=== PATIENT | female | born 1995 | race Caucasian/White ===

== ENCOUNTER 2018-02-26 22:07 | Emergency (ER) | payer BC, OTHER ==
[2018-02-26 22:20] VITALS: BP 123/74; PULSE 103; TEMP 97.9; BMI 36.9
[2018-02-26] MEDS ORDERED: GABAPENTIN 300 MG CAPSULE (FP) PO ONE (23:14)
[2018-02-26] MEDS ORDERED: IBUPROFEN 600 MG TABLET (FP) PO ONE ×2 (23:16→23:49)
--- NOTE | 2018-02-26 23:18 | PDOC ---
History of Present Illness - General Chief Complaint: Toothache Stated Complaint: TOOTH ACHE Time Seen by Provider: 02/26/18 22:49 History Source: Patient Exam Limitations: No Limitations - History of Present Illness Initial Comments: 23 yo F w a pmh of diabetes and an abscess who presents with 4 days of R sided stabbing facial pain. She denies any inciting factors and states this has never happened in the past. She reports that the pain comes and goes but when it comes on it typically lasts for around 3 to 4 hours. She states it is not random lightening bolt episodes for 15-20 seconds. She has been taking 600 mg of motrin and flexiril for pain control but it has not helped. She denies any recent fevers, chills, or infections. Denies trouble swallowing. Denies neck pain. Denies lip or tongue swelling. PCP: Dr. Mar Hernández Allergies: NKA, NKDA Social Hx: Denies smoking, drinking, or illicit drug usage. Past History - Past Medical History Allergies/Adverse Reactions: Allergies Allergy/AdvReac Type Severity Reaction Status Date / Time No Known Allergies Allergy Verified 02/26/18 22:19 Home Medications: Ambulatory Orders Penicillin V Potassium [Pen Vee K -] 250 mg PO QID #28 tablet 02/27/18 COPD: No Diabetes: Yes (IDDM) Psychiatric Problems: Yes (depression) - Suicide/Smoking/Psychosocial Hx Smoking History: Never smoked Hx Alcohol Use: No Drug/Substance Use Hx: No Review of Systems - Review of Systems Able to Perform ROS?: Yes Comments:: CONSTITUTIONAL: Absent: fever, no chills, no fatigue EYES: Absent: visual changes ENT: Absent: ear pain, no sore throat CARDIOVASCULAR: Absent: chest pain, no palpitations RESPIRATORY: Absent: cough, no SOB GI: Absent: abdominal pain, no nausea, no vomiting, no constipation, no diarrhea GENITOURINARY: Absent: dysuria, no frequency, no hematuria MUSKULOSKELETAL: Absent: back pain, no arthralgia, no myalgia SKIN: Absent: rash NEURO: Absent: headache *Physical Exam - Vital Signs Last Vital Signs Temp Pulse Resp BP Pulse Ox 97.9 F 103 H 20 123/74 100 02/26/18 22:14 02/26/18 22:14 02/26/18 22:14 02/26/18 22:14 02/26/18 22:14 - Physical Exam Comments: GENERAL: Well-appearing, well-nourished. No apparent distress. HEENT: There is pain in the mandibular branch distribution to touch. Patient has a broken and infected looking inferior molar on the right. Normocephalic, atraumatic. PERRL, EOM intact. No peritonsilar abscess. CARDIOVASCULAR: Normal S1, S2. Tachycardic rate and regular rhythm. PULMONARY: Clear to auscultation bilaterally. ABDOMEN: Soft, non-distended, non-tender. EXTREMITIES: Normal ROM in all four extremities. No gross deformities. SKIN: Warm, dry. No rash NEUROLOGICAL: No focal neurological deficits. Moderate Sedation - Procedure Monitoring Vital Signs: Procedure Monitoring Vital Signs Temperature 97.9 F 02/26/18 22:14 Pulse Rate 103 H 02/26/18 22:14 Respiratory Rate 20 02/26/18 22:14 Blood Pressure 123/74 02/26/18 22:14 O2 Sat by Pulse Oximetry (%) 100 02/26/18 22:14 Medical Decision Making - Medical Decision Making 23 yo F w a pmh of diabetes and an abscess who presents with 4 days of R sided stabbing facial pain. DDx IBNLT: trigeminal neuralgia, lesion compressing nerve, tooth abscess, sinusitis, pinched nerve. Plan: gabapentin, motrin, re-assess. Patient has a broken inferior right molar tooth which is infected. Will DC with Abx. *DC/Admit/Observation/Transfer Diagnosis at time of Disposition: Facial pain, Broken tooth, Infected tooth - Discharge Dispostion Disposition: HOME Condition at time of disposition: Stable Decision to Admit order: No - Prescriptions Prescriptions: Penicillin V Potassium [Pen Vee K -] 250 mg PO QID #28 tablet - Referrals Referrals: Flako Hernández MD [Primary Care Provider] - - Patient Instructions Printed Discharge Instructions: DI for Trigeminal Neuralgia, Neuropathic Pain Additional Instructions: You came into the ER with Right sided facial pain. We believe this pain is from a broken tooth. We are sending a medication to your pharmacy to help with the pain. Please make sure to go and pick it up. Come back to the ER if your pain worsens, you have difficulty swallowing, get a high fever, or have any other new or worsening concerns. Thank you for coming to the [place]. We hope you feel better soon! Print Language: SERBIAN - Post Discharge Activity
[2018-02-26] MEDS ORDERED: GABAPENTIN 100 MG CAPSULE (FP) ONE (23:48)
[2018-02-27] MEDS ORDERED: PENICILLIN V POTASSIUM 500 MG TABLET PO ONE (00:25)
--- NOTE | 2018-02-27 00:33 | PDOC ---
Attending Attestation - Resident Resident Name: Victorino Douglas - ED Attending Attestation I have performed the following: I have examined & evaluated the patient, The case was reviewed & discussed with the resident, I agree w/resident's findings & plan - HPI HPI: 02/27/18 00:28 Pt comes with right mandibular pain. She has pain with opening her mouth, and acknowledges that she has a broken tooth, and that she never went to dentist for this. She has had pain x 4 days. She took motrin with some relief. - Physicial Exam PE: 02/27/18 00:33 Agree with resident exam 02/27/18 00:34 Pt has broken tooth at the right mandible. No swelling of the gingiva; no redness and no pus. No swelling of the buccal muscosa. Pt is afebrile. Pt has no rigoberto's angina. Pharynx is normal. Voice is unchanged. - Medical Decision Making 02/27/18 00:34 Home with pen V K and motrin for pain.
== END 2018-02-27 00:48 | disposition home or self-care (01) ==
LOC: JERFT 22:07 → JER 22:07
DX: K08.9 Disorder of teeth and supporting structures, unspecified (principal); G50.1 Atypical facial pain; E11.9 Type 2 diabetes mellitus without complications; F32.9 Major depressive disorder, single episode, unspecified
CPT/HCPCS: 99282-25

== ENCOUNTER 2019-11-08 18:44 | Emergency (ER) | payer OTHER ==
[2019-11-08 18:50] VITALS: BMI 38.7
--- NOTE | 2019-11-08 18:50 | PDOC ---
Rapid Medical Evaluation Time Seen by Provider: 11/08/19 18:47 Medical Evaluation: Allergies Allergy/AdvReac Type Severity Reaction Status Date / Time No Known Allergies Allergy Verified 11/08/19 18:47 11/08/19 18:48 HPI: 24 year old female pmhx DM I complaining of [place] since Thursday, with associated N/V x 2 NBNB PE: RRR CTA Neuro grossly intact A/P: [facility] NS Imaging differed to provider Pt to precede to ED for further evaluation and treatment.
[2019-11-08] MEDS ORDERED: SODIUM CHLORIDE 0.9% 500 ML INFUS.BAG IV ONE (18:51)
[2019-11-08] MEDS ORDERED: ONDANSETRON 4 MG/2 ML VIAL IVPUSH ONE (19:55)
--- NOTE | 2019-11-08 19:58 | PDOC ---
*Physical Exam - Vital Signs Last Vital Signs Temp Pulse Resp BP Pulse Ox 98.0 F 111 H 20 125/80 100 11/08/19 18:48 11/08/19 18:48 11/08/19 18:48 11/08/19 18:48 11/08/19 18:48 ED Treatment Course - LABORATORY CBC & Chemistry Diagram: 11/08/19 20:40 11/08/19 20:40 Medical Decision Making - Medical Decision Making 11/08/19 19:58 Patient seen by the advanced practice provider under my supervision. Ancillary testing reviewed as necessary. I agree with plan as outlined by the advanced practice provider. Discharge - Discharge Information Problems reviewed: Yes Clinical Impression/Diagnosis: Insulin dependent diabetes mellitus, Hyperglycemia, Cystitis Nausea & vomiting Qualifiers: Vomiting type: unspecified Vomiting Intractability: unspecified Qualified Code(s): R11.2 - Nausea with vomiting, unspecified Disposition: HOME - Additional Discharge Information Prescriptions: Cephalexin Monohydrate [Keflex -] 500 mg PO BID #14 capsule - Follow up/Referral - Patient Discharge Instructions Patient Printed Discharge Instructions: DI for Hyperglycemia -- Adult Additional Instructions: Drink plenty of fluids. Follow-up with your doctor. Take cephalexin as prescribed. Return to the emergency room for any worsening symptoms - Post Discharge Activity
--- NOTE | 2019-11-08 20:56 | PDOC ---
History of Present Illness - General Chief Complaint: Headache Stated Complaint: HEADACHE Time Seen by Provider: 11/08/19 18:47 History Source: Patient - History of Present Illness Initial Comments: 11/08/19 21:12 24-year-old female complaining of nausea vomiting generalized abdominal discomfort and headache for the last 2 days. Patient is a insulin-dependent diabetic, took her insulin today. Denies diarrhea, weakness, URI symptoms, urinary symptoms Past History - Medical History Allergies/Adverse Reactions: Allergies Allergy/AdvReac Type Severity Reaction Status Date / Time No Known Allergies Allergy Verified 11/08/19 18:47 Home Medications: Ambulatory Orders Penicillin V Potassium [Pen Vee K -] 250 mg PO QID #28 tablet 02/27/18 Cephalexin Monohydrate [Keflex -] 500 mg PO BID #14 capsule 11/09/19 COPD: No Diabetes: Yes (IDDM) Psychiatric Problems: Yes (depression, BIPOLAR) - Reproductive History Is Patient Now?: No - Immunization History Immunization Up to Date: Yes - Psycho-Social/Smoking History Smoking History: Never smoked - Substance Abuse Hx (Audit-C & DAST Scrn) How often the patient has a drink containing alcohol: Never Score: In Men: 4 or > Positive; In Women: 3 or > Positive: 0 Screen Result (Pos requires Nsg. Audit-10AR): Negative In the last yr the pt used illegal drug/Rx for NonMed reason: No Score: Yes response is considered Positive: 0 Screen Result (Positive result requires Nsg. DAST-10): Negative Review of Systems - Review of Systems Able to Perform ROS?: Yes Is the patient limited Vietnamese proficient: No ABD/GI: Yes: Nausea, Vomiting, Abdominal cramping. No: Symptoms Reported, See HPI, Abdominal Distended, Abd. Pain w/ defecation, Blood Streaked Bowels, Constipated, Diarrhea, Difficulty Swallowing, Poor Appetite, Poor Fluid Intake, Rectal Bleeding, Indigestion, Tarry Stools, Other : No: Symptoms Reported, See HPI, Burning, Dysuria, Discharge, Frequency, Flank Pain, Hematuria, Incontinence, Pain, Urgency, Testicular Mass, Testicular Swelling, Lesions, Testicular Pain, Other Neurological: Yes: Headache. No: Symptoms reported, See HPI, Numbness, Paresthesia, Pre-Existing Deficit, Seizure, Tingling, Tremors, Weakness, Unsteady Gait, Ataxia, Dizziness, Other *Physical Exam - Vital Signs Last Vital Signs Temp Pulse Resp BP Pulse Ox 98.0 F 111 H 20 125/80 100 11/08/19 18:48 11/08/19 18:48 11/08/19 18:48 11/08/19 18:48 11/08/19 18:48 - Physical Exam General Appearance: Yes: Appropriately Dressed HEENT: positive: Normal ENT Inspection Neck: positive: Supple. negative: Rigidity Respiratory/Chest: positive: Lungs Clear Cardiovascular: positive: Regular Rhythm, Regular Rate Gastrointestinal/Abdominal: positive: Normal Bowel Sounds, Soft. negative: Tender Extremity: positive: Normal Capillary Refill, Normal Inspection, Normal Range of Motion Integumentary: positive: Normal Color, Dry, Warm Neurologic: positive: Fully Oriented, Alert, Normal Mood/Affect ED Treatment Course - LABORATORY CBC & Chemistry Diagram: 11/08/19 20:40 11/08/19 20:40 - ADDITIONAL ORDERS Additional order review: Laboratory Results 11/08/19 20:42 POC Glucometer 355 11/08/19 20:42 POC Glucometer 355 - Medications Given in the ED: ED Medications Discontinued Medications Generic Name Dose Route Start Last Admin Trade Name Freq PRN Reason Stop Dose Admin Ondansetron HCl 4 mg 11/08/19 19:55 11/08/19 20:54 Zofran Injection IVPUSH 11/08/19 19:56 4 mg ONCE ONE Administration Sodium Chloride 1,000 ml 11/08/19 18:51 11/08/19 20:54 Normal Saline - IV 11/08/19 18:52 1,000 ml ONCE ONE Administration Medical Decision Making - Medical Decision Making 11/08/19 23:21 A: hyperglycemia Nausea and vomiting P: labs beta hydroxy Ua IVF antiemetics tylenol 11/09/19 00:26 patient reports feel better currently PO challenging Discharge - Discharge Information Problems reviewed: Yes Clinical Impression/Diagnosis: Insulin dependent diabetes mellitus, Hyperglycemia, Cystitis Nausea & vomiting Qualifiers: Vomiting type: unspecified Vomiting Intractability: unspecified Qualified Code(s): R11.2 - Nausea with vomiting, unspecified Disposition: HOME - Additional Discharge Information Prescriptions: Cephalexin Monohydrate [Keflex -] 500 mg PO BID #14 capsule - Follow up/Referral - Patient Discharge Instructions Patient Printed Discharge Instructions: DI for Hyperglycemia -- Adult Additional Instructions: Drink plenty of fluids. Follow-up with your doctor. Take cephalexin as prescribed. Return to the emergency room for any worsening symptoms - Post Discharge Activity
[2019-11-08 21:01] LABS: BASO % 0.7 % (0-2.0); HEMATOCRIT 37.4 % (32.4-45.2); HEMOGLOBIN 12.3 GM/dL (10.7-15.3); LYMPH % 41.5 % (8-40); MCH 29.2 pg (25.7-33.7); MCHC 32.9 g/dl (32.0-36.0); MEAN CELL VOLUME 88.8 fl (80-96); MEAN PLT VOLUME 8.8 fl (7.5-11.1); MONO % 7.4 % (3.8-10.2); NEUT % 48.4 % (42.8-82.8); PLATELET COUNT 413 K/MM3 (134-434); RBC 4.21 M/mm3 (3.60-5.2); RDW 13.7 % (11.6-15.6); WHITE BLOOD COUNT 11.9 K/mm3 (4.0-10.0)
[2019-11-08 21:02] LABS: VENOUS BASE EXCESS -1.3 mmol/L (-2-2); VENOUS O2 SATURATION 93.3 % (70-80); VENOUS PCO2 38.4 mmHg (38-52); VENOUS PH 7.4 (7.310-7.410)
[2019-11-08 21:07] LABS: EPI CELLS >36 /uL (0-25.1); HYALINE CASTS 1 /uL (0-3.1); PH,URINE 5.5 (5.0-8.0); URINE APPEARANCE CLEAR; URINE BACTERIA 961 /uL (0-1359); URINE BILIRUBIN NEGATIVE (NEGATIVE); URINE COLOR YELLOW; URINE GLUCOSE (UA) 3+ (NEGATIVE); URINE KETONE NEGATIVE (NEGATIVE); URINE LEUK ESTERASE TRACE (NEGATIVE); URINE NITRITE NEGATIVE (NEGATIVE); URINE PROTEIN NEGATIVE (NEGATIVE); URINE RBC 8 /uL (0-23.9); URINE UROBILINOGEN 0.2 mg/dL (0.2-1.0); URINE WBC 41 /uL (0-25.8)
[2019-11-08 22:03] LABS: ALBUMIN 3.4 g/dl (3.4-5.0); ALK PHOS 73 U/L (45-117); ANION GAP 9 MMOL/L (8-16); BILIRUBIN,TOTAL 0.2 mg/dL (0.2-1); BLOOD UREA NITROGEN 13.5 mg/dL (7-18); CALCIUM 9.2 mg/dL (8.5-10.1); CHLORIDE 104 mmol/L (98-107); CO2 23 mmol/L (21-32); CREATININE 0.7 mg/dL (0.55-1.3); GLUCOSE,RANDOM 354 mg/dL (74-106); POTASSIUM 4.3 mmol/L (3.5-5.1); SGOT/AST 20 U/L (15-37); SGPT/ALT 35 U/L (13-61); SODIUM 136 mmol/L (136-145); TOT PROT 8.1 g/dl (6.4-8.2)
[2019-11-08] MEDS ORDERED: ACETAMINOPHEN 1000 MG/100 ML VIAL (NON FORMULARY) IVPB ONE (22:16)
[2019-11-08] MEDS ORDERED: METOCLOPRAMIDE HCL INJECTION 10 MG/2 ML VIAL IVPB ONE (22:16)
[2019-11-08] MEDS ORDERED: ACETAMINOPHEN INJECTION 100 ML IVPB ONE (22:23)
[2019-11-08] MEDS ORDERED: METOCLOPRAMIDE HCL INJECTION 10 MG/2 ML VIAL ONE (22:23)
[2019-11-09 00:51] VITALS: BP 125/82; PULSE 91; TEMP 97.2
== END 2019-11-09 01:07 | disposition home or self-care (01) ==
LOC: JER 18:44
PROC: 3E0333Z Introduction of Anti-inflammatory into Peripheral Vein, Percutaneous Approach (ICD-10-PCS; principal; 2019-11-08)
PROC: 3E033GC Introduction of Other Therapeutic Substance into Peripheral Vein, Percutaneous Approach (ICD-10-PCS; 2019-11-08)
DX: R11.2 Nausea with vomiting, unspecified (principal)
CPT/HCPCS: 36415; 80053; 81003; 82010; 82803; 82962; 84702; 85025; 99284-25; J0131

== ENCOUNTER 2020-09-13 17:54 | Emergency (ER) | payer OTHER ==
[2020-09-13 18:00] VITALS: TEMP 98; BMI 34.2
[2020-09-13] MEDS ORDERED: ONDANSETRON 4 MG/2 ML VIAL IVPUSH ONE ×2 (18:49→22:54)
[2020-09-13] MEDS ORDERED: SODIUM CHLORIDE 1,000 ML IV STA (18:49)
[2020-09-13] MEDS ORDERED: ACETAMINOPHEN 1000 MG/100 ML VIAL (NON FORMULARY) IVPB ONE (18:51)
[2020-09-13] MEDS ORDERED: METOCLOPRAMIDE HCL INJECTION 10 MG/2 ML VIAL IVPUSH ONE (19:09)
[2020-09-13] MEDS ORDERED: ACETAMINOPHEN INJECTION 100 ML IVPB ONE (19:16)
[2020-09-13] MEDS ORDERED: METOCLOPRAMIDE HCL INJECTION 10 MG/2 ML VIAL ONE (19:16)
[2020-09-13 19:39] LABS: BASO % 0.6 % (0-2.0); EOS % 1.4 % (0-4.5); HEMATOCRIT 38.2 % (32.4-45.2); HEMOGLOBIN 12.5 GM/dL (10.7-15.3); LYMPH % 34.9 % (8-40); MCH 28.8 pg (25.7-33.7); MCHC 32.8 g/dl (32.0-36.0); MEAN CELL VOLUME 87.9 fl (80-96); MEAN PLT VOLUME 8.7 fl (7.5-11.1); MONO % 5.5 % (3.8-10.2); NEUT % 57.6 % (42.8-82.8); PLATELET COUNT 555 10^3/uL (134-434); RBC 4.35 M/mm3 (3.60-5.2); RDW 13.8 % (11.6-15.6); WHITE BLOOD COUNT 13.9 K/mm3 (4.0-10.0)
[2020-09-13 19:49] LABS: VENOUS BASE EXCESS -1.6 mmol/L (-2-2); VENOUS O2 SATURATION 84.2 % (70-80); VENOUS PCO2 42.7 mmHg (38-52); VENOUS PH 7.364 (7.310-7.410)
[2020-09-13 19:59] LABS: CALCIUM 9.8 mg/dL (8.5-10.1)
[2020-09-13 20:00] LABS: BLOOD UREA NITROGEN 8.8 mg/dL (7-18)
[2020-09-13 20:03] LABS: CREATININE 0.6 mg/dL (0.55-1.3)
[2020-09-13 20:04] LABS: BILIRUBIN,TOTAL 0.3 mg/dL (0.2-1); TOT PROT 8.4 g/dl (6.4-8.2)
[2020-09-13 21:52] LABS: HCG,QUALITATIVE URINE Negative
[2020-09-13 22:14] LABS: URINE APPEARANCE Clear; URINE BILIRUBIN 1+ (NEGATIVE); URINE COLOR Yellow; URINE GLUCOSE (UA) Negative (NEGATIVE); URINE KETONE Trace (NEGATIVE); URINE LEUK ESTERASE Negative (NEGATIVE); URINE NITRITE Negative (NEGATIVE); URINE PROTEIN Trace (NEGATIVE); URINE UROBILINOGEN 0.2 mg/dL (0.2-1.0)
[2020-09-13] MEDS ORDERED: ONDANSETRON 4 MG/2 ML VIAL ONE (23:01)
[2020-09-13] MEDS ORDERED: KETOROLAC TROMETHAMINE 15 MG/ML VIAL IVPUSH ONE (23:06)
[2020-09-13] MEDS ORDERED: KETOROLAC TROMETHAMINE 15 MG/ML VIAL ONE (23:10)
[2020-09-13 23:22] VITALS: BP 110/76; PULSE 80
== END 2020-09-13 23:22 | disposition home or self-care (01) ==
LOC: JER 17:54
PROC: 3E033NZ Introduction of Analgesics, Hypnotics, Sedatives into Peripheral Vein, Percutaneous Approach (ICD-10-PCS; principal; 2020-09-13)
PROC: 3E033GC Introduction of Other Therapeutic Substance into Peripheral Vein, Percutaneous Approach (ICD-10-PCS; 2020-09-13)
PROC: 3E033GC Introduction of Other Therapeutic Substance into Peripheral Vein, Percutaneous Approach (ICD-10-PCS; 2020-09-13)
PROC: 3E0337Z Introduction of Electrolytic and Water Balance Substance into Peripheral Vein, Percutaneous Approach (ICD-10-PCS; 2020-09-13)
PROC: 3E033GC Introduction of Other Therapeutic Substance into Peripheral Vein, Percutaneous Approach (ICD-10-PCS; 2020-09-13)
PROC: 3E0333Z Introduction of Anti-inflammatory into Peripheral Vein, Percutaneous Approach (ICD-10-PCS; 2020-09-13)
DX: R51.9 Headache, unspecified (principal); B34.9 Viral infection, unspecified
CPT/HCPCS: 36415; 70450-TC; 80053; 81003; 82010; 82803; 82962; 84703; 85025; 99285-25; C9803; J0131; U0003; U0005

== ENCOUNTER 2020-10-05 22:22 | Emergency (ER) | payer OTHER ==
[2020-10-05 22:31] VITALS: BMI 33.7
[2020-10-05] MEDS ORDERED: METOCLOPRAMIDE HCL INJECTION 10 MG/2 ML VIAL IVPUSH ONE (23:44)
[2020-10-05] MEDS ORDERED: PROCHLORPERAZINE INJECTION 10 MG/2 ML VIAL IVPB ONE (23:44)
[2020-10-05] MEDS ORDERED: ACETAMINOPHEN 1000 MG/100 ML VIAL (NON FORMULARY) IVPB ONE (23:49)
[2020-10-05] MEDS ORDERED: SODIUM CHLORIDE 0.9% 500 ML INFUS.BAG IV ONE (23:49)
[2020-10-05] MEDS ORDERED: METOCLOPRAMIDE HCL INJECTION 10 MG/2 ML VIAL ONE (23:49)
[2020-10-05] MEDS ORDERED: ACETAMINOPHEN INJECTION 100 ML IVPB ONE (23:49)
[2020-10-06 00:15] LABS: BASO % 0.7 % (0-2.0); EOS % 1.7 % (0-4.5); HEMATOCRIT 38.5 % (32.4-45.2); HEMOGLOBIN 12.8 GM/dL (10.7-15.3); LYMPH % 36.9 % (8-40); MCH 28.9 pg (25.7-33.7); MCHC 33.2 g/dl (32.0-36.0); MEAN CELL VOLUME 87.3 fl (80-96); MEAN PLT VOLUME 8.7 fl (7.5-11.1); MONO % 5.4 % (3.8-10.2); NEUT % 55.3 % (42.8-82.8); PLATELET COUNT 552 10^3/uL (134-434); RBC 4.42 M/mm3 (3.60-5.2); RDW 13.6 % (11.6-15.6); WHITE BLOOD COUNT 14.1 K/mm3 (4.0-10.0)
[2020-10-06 00:35] LABS: CALCIUM 9.7 mg/dL (8.5-10.1)
[2020-10-06 00:36] LABS: ALBUMIN 3.5 g/dl (3.4-5.0); BLOOD UREA NITROGEN 13.5 mg/dL (7-18)
[2020-10-06 00:39] LABS: CREATININE 0.6 mg/dL (0.55-1.3)
[2020-10-06 00:40] LABS: BILIRUBIN,TOTAL 0.3 mg/dL (0.2-1); TOT PROT 8.2 g/dl (6.4-8.2)
[2020-10-06 06:37] LABS: EPI CELLS 27 /uL (0-25.1); HYALINE CASTS 3 /uL (0-3.1); URINE APPEARANCE CLOUDY; URINE BACTERIA 220 /uL (0-1359); URINE BILIRUBIN NEGATIVE (NEGATIVE); URINE COLOR YELLOW; URINE GLUCOSE (UA) NEGATIVE (NEGATIVE); URINE KETONE NEGATIVE (NEGATIVE); URINE LEUK ESTERASE NEGATIVE (NEGATIVE); URINE NITRITE NEGATIVE (NEGATIVE); URINE PROTEIN TRACE (NEGATIVE); URINE WBC 18 /uL (0-25.8)
[2020-10-06] MEDS ORDERED: CEPHALEXIN MONOHYDRATE 500 MG CAPSULE (UD) PO ONE (07:24)
[2020-10-06] MEDS ORDERED: LIDOCAINE 5% TOPICAL PATCH TP ONE (07:33)
[2020-10-06] MEDS ORDERED: METHOCARBAMOL 500 MG TABLET PO ONE (07:33)
[2020-10-06 07:34] VITALS: BP 108/69; PULSE 61; TEMP 98
[2020-10-06] MEDS ORDERED: CEPHALEXIN MONOHYDRATE 500 MG CAPSULE (UD) ONE (07:37)
[2020-10-06] MEDS ORDERED: METHOCARBAMOL 500 MG TABLET ONE (07:37)
[2020-10-06] MEDS ORDERED: LIDOCAINE 5% TOPICAL PATCH ONE (07:37)
[2020-10-06 08:26] LABS: URINE RBC 264.8 /uL (0-23.9); YEAST NO SEEN (NEGATIVE)
[2020-10-06] MEDS ORDERED: LIDOCAINE PATCH REMOVAL MC ONE (22:00)
== END 2020-10-06 08:16 | disposition home or self-care (01) ==
LOC: JER 22:22
PROC: 3E0333Z Introduction of Anti-inflammatory into Peripheral Vein, Percutaneous Approach (ICD-10-PCS; principal; 2020-10-05)
PROC: 3E033GC Introduction of Other Therapeutic Substance into Peripheral Vein, Percutaneous Approach (ICD-10-PCS; 2020-10-05)
DX: R11.2 Nausea with vomiting, unspecified (principal)
CPT/HCPCS: 36415; 80053; 81003; 83690; 85025; 87807; 87880; 93005; 93010; 99284-25; C9803; J0131; U0003; U0005